=== PATIENT | male | born 2000 | race Caucasian/White ===

== ENCOUNTER 2022-08-05 15:17 | Emergency (ER) | payer OTHER ==
[~2022-08-05] VITALS: Ht 188 cm; Wt 163.3 kg
[2022-08-05 15:37] VITALS: BP 136/70
--- NOTE | 2022-08-05 15:37 | NUR ---
BIBS C/O PAIN IN LEFT LEG,RIGHT KNEE AND ANKLE, FELL OFF A [place] 5 DAYS AGO
--- NOTE | 2022-08-05 15:54 | NUR ---
X RAY AT BEDSIDE
--- NOTE | 2022-08-05 16:32 | NUR ---
Patient discharged to home in stable condition. Written and verbal after care instructions given. Patient verbalizes understanding of instruction.
== END 2022-08-05 16:31 | disposition home or self-care (01) ==
LOC: ER 15:24
DX: S83.91XA Sprain of unspecified site of right knee, initial encounter (principal); I10 Essential (primary) hypertension; F17.200 Nicotine dependence, unspecified, uncomplicated; Z88.0 Allergy status to penicillin; Z60.2 Problems related to living alone; W13.0XXA Fall from, out of or through balcony, initial encounter; Y93.89 Activity, other specified; Y92.89 Other specified places as the place of occurrence of the external cause; Y99.8 Other external cause status
CPT/HCPCS: 73564-TC; 73590-TC